=== PATIENT | female | born 1945 | race Caucasian/White ===

== ENCOUNTER 2021-02-15 10:12 | Emergency (ER) | payer MEDICARE ==
[2021-02-15] MEDS ORDERED: Acetaminophen/Codeine 30-300mg Tablet ONE (11:47)
[2021-02-15] MEDS ORDERED: Ketorolac Tromethamine 30 MG/ML VIAL ONE (12:41)
== END 2021-02-15 13:44 | disposition home or self-care (01) ==
LOC: ERS 10:12
DX: L03.113 Cellulitis of right upper limb (principal); Z79.899 Other long term (current) drug therapy
CPT/HCPCS: 96372; J1885

== ENCOUNTER 2021-09-04 09:50 | Outpatient (CLI) | payer MEDICARE ==
[2021-09-04] MEDS ORDERED: Iopamidol 370 76% 100 ML VIAL ONE (10:09)
== END 2021-09-04 09:51 | disposition home or self-care (01) ==
LOC: CT 09:50
PROVIDERS: ATTEND Obstetrics & Gynecology
DX: Q24.8 Other specified congenital malformations of heart (principal); J98.4 Other disorders of lung
CPT/HCPCS: 71270; 82565; Q9967